=== PATIENT | female | born 1950 | race Caucasian/White ===

== ENCOUNTER 2020-01-24 05:36 | Day surgery (SDC) | payer MEDICARE, OTHER ==
[2020-01-20 12:02] LABS: BASOPHILS % (AUTO) 1.2 % (0-1); EOSINOPHILS # (AUTO) 0.1 X10'3 (0-0.9); EOSINOPHILS % (AUTO) 3.1 % (0-6); LYMPHOCYTES # (AUTO) 0.9 X10'3 (1.1-4.8); LYMPHOCYTES % (AUTO) 23.1 % (21-51); MEAN CORPUSCULAR HEMOGLOBIN 29.1 PG (27.0-31.0); MEAN CORPUSCULAR HGB CONC 33.5 g/dL (33.0-36.5); MEAN CORPUSCULAR VOLUME 86.8 FL (78-98); MEAN PLATELET VOLUME 8.6 FL (7.4-10.4); MONOCYTES # (AUTO) 0.2 X10'3 (0-0.9); MONOCYTES % (AUTO) 6.7 % (2-12); NEUTROPHILS # (AUTO) 2.4 X10'3 (1.8-7.7); NEUTROPHILS % (AUTO) 65.9 % (42-75); PRE OP HEMATOCRIT 45.1 % (35.0-45.0); PRE OP HEMOGLOBIN 15.1 g/dL (12.0-16.0); PRE OP PLATELET COUNT 122 X10'3 (140-440)
[2020-01-20 12:14] LABS: PRE OP PROTIME 9.9 SECONDS (9.0-12.0)
[2020-01-20 12:15] LABS: ALBUMIN 3.9 G/DL (3.4-5.0); ALBUMIN/GLOBULIN RATIO 0.9 (1.1-1.5); ALKALINE PHOSPHATASE 252 IU/L (46-116); BLOOD UREA NITROGEN 20 MG/DL (7-18); BUN/CREATININE RATIO 22.2 (6.6-38.0); CALCIUM 9.4 MG/DL (8.5-10.1); CHLORIDE 101 MMOL/L (99-107); PRE OP ALT 75 U/L (30-65); PRE OP ANION GAP 8 (8-16); PRE OP AST 43 U/L (10-37); PRE OP BILIRUB, TOTAL 0.5 MG/DL (0.0-1.0); PRE OP POTASSIUM 4.2 MMOL/L (3.4-5.1); PRE OP SODIUM 136 MMOL/L (135-145); TOTAL CARBON DIOXIDE 27.4 MMOL/L (24-32); TOTAL PROTEIN 8.2 G/DL (6.4-8.2); eGFR 62 ML/MIN
[2020-01-20 12:22] LABS: PRE OP GLUCOSE 301 MG/DL (70-104)
[~2020-01-24] VITALS: Ht 167.6 cm; Wt 99.5 kg
[~2020-01-24 05:36] MED LIST: ACET-2119 PO; ASCO250T22 PO; ASPI-1265 PO; CLINDAMYCIN/D5W 900mg/50ml 50 ML IV ONE; DICY10CA88 PO; DILT240C96 PO; DULA1.5P SUBCUT; ERGO50CA PO; FOLI0.4T14 PO; FURO-150 PO; INSU100V36 SQ; INSU300I SUBCUT; MULT-620 PO; NAPR-1154 PO; NITR0.4T51 SL; POTA20TA19 PO; PREG100C PO; PREG50CA PO; TELM80TA9 PO; TRAM50TA2 PO; TRAZ-251 PO; VITA-67 PO; VITA1TAB37 PO; famotidine 20mg tablet PO ONE; ringers solution, lacted 1,000 ML IV SCH
[2020-01-24] MEDS ORDERED: LIDOcaine 1% (10mg/ml) 2ml vial ONE (05:50)
[2020-01-24 06:47] VITALS: BP 162/76
[2020-01-24 06:51] VITALS: BP 162/76
[2020-01-24] MEDS ORDERED: BUPIVAcaine/PF 2.5mg/ml (0.25%) 10ml vial ONE (06:54)
--- NOTE | 2020-01-24 06:58 | NUR ---
LITTLE OPEN SCABES, OVER BOTH ARMS AND HANDS. PT SAID DR Banegas IS AWARE, AND LOOKED AT THEM IN THE OFFICE. DR Jackson NOTIFIED OF BG [id number]
[2020-01-24] MEDS ORDERED: LIDOcaine 0.5% (5mg/ml) 50ml vial ONE (07:49)
[2020-01-24] MEDS ORDERED: fentaNYL/PF 50MCG/1 ML 2ML syringe ONE (08:39)
[2020-01-24] MEDS ORDERED: midazolam 2 mg/2 ml injection ONE (08:40)
[2020-01-24 09:02] VITALS: BP 141/72
[2020-01-24] MEDS ORDERED: ringers solution, lacted 1,000 ML IV SCH (09:04)
[2020-01-24] MEDS ORDERED: morphine 4 MG/ML inj SYRINge IV PRN (09:05)
[2020-01-24] MEDS ORDERED: morphine 2 MG/ML inj. syringe IV PRN (09:05)
[2020-01-24] MEDS ORDERED: proCHLORperazine 10 MG/2 ml inj IV PRN (09:05)
[2020-01-24] MEDS ORDERED: meperidine/PF 25mg/ml syringe IV PRN ×3 (09:05)
[2020-01-24] MEDS ORDERED: ondansetron/PF 4mg/2ml inj IV PRN (09:05)
--- NOTE | 2020-01-24 09:07 | NUR ---
Received from OR via [facility], accompanied by Anesthesiologist DR FISHER and report given by Anesthesiolgist. PATIENT responsive to questions, DENIES PAIN, V/S WNL, NEUROVASCULAR CHECKS INTACT, 20G PIV L forearm, LR IVF at 100cc/hr, SCD ON, DRESSING TO RIGHT WRIST CDI ELEVATED WITH ICEBAG APPLIED.
[2020-01-24 09:10] VITALS: BP 136/74
[2020-01-24 09:20] VITALS: BP 143/71
[2020-01-24 09:30] VITALS: BP 158/77
--- NOTE | 2020-01-24 09:52 | NUR ---
Pt discharged to vehicle by wheelchair without incident after pt and family on phone verbalized understanding of all DC instructions and IV taken out. Fingers remain slightly numb but able to move, dressing remains CDI. All belongings returned to patient. Pain meds at home.
== END 2020-01-24 09:52 | disposition home or self-care (01) ==
LOC: PAS 05:36
PROVIDERS: ATTEND Orthopaedic Surgery Hand Surgery
DX: G56.01 Carpal tunnel syndrome, right upper limb (principal); M65.341 Trigger finger, right ring finger; I10 Essential (primary) hypertension; I25.10 Atherosclerotic heart disease of native coronary artery without angina pectoris; E11.9 Type 2 diabetes mellitus without complications; F32.9 Major depressive disorder, single episode, unspecified; F41.9 Anxiety disorder, unspecified; D64.9 Anemia, unspecified; M19.90 Unspecified osteoarthritis, unspecified site; E66.9 Obesity, unspecified; Z68.35 Body mass index [BMI] 35.0-35.9, adult; Z90.710 Acquired absence of both cervix and uterus; Z79.899 Other long term (current) drug therapy; Z79.01 Long term (current) use of anticoagulants; Z20.828 Contact with and (suspected) exposure to other viral communicable diseases; Z98.890 Other specified postprocedural states; Z88.8 Allergy status to other drugs, medicaments and biological substances; Z88.0 Allergy status to penicillin; Z91.030 Bee allergy status; Z88.1 Allergy status to other antibiotic agents; Z79.4 Long term (current) use of insulin; Z95.5 Presence of coronary angioplasty implant and graft
CPT/HCPCS: 26055; 36415; 64721; 71046; 80053; 82948; 85025; 85610; 85730; 87635; J2001; J2250; J3010; J3490; A4215; J7120

== ENCOUNTER 2020-07-17 10:04 | Outpatient (CLI) | payer MEDICARE, OTHER ==
[~2020-07-17 10:04] MED LIST changes: -CLINDAMYCIN/D5W 900mg/50ml 50 ML IV ONE; -famotidine 20mg tablet PO ONE; -ringers solution, lacted 1,000 ML IV SCH
== END 2020-07-17 23:59 | disposition home or self-care (01) ==
LOC: 64 CT 10:04
PROVIDERS: ATTEND Dietitian, Registered
DX: C22.0 Liver cell carcinoma (principal); R91.1 Solitary pulmonary nodule; K76.0 Fatty (change of) liver, not elsewhere classified; R16.2 Hepatomegaly with splenomegaly, not elsewhere classified; I77.810 Thoracic aortic ectasia
CPT/HCPCS: 71250

== ENCOUNTER 2020-08-15 22:16 | Inpatient (IN) | payer MEDICARE, OTHER ==
[~2020-08-15] VITALS: Ht 165.1 cm; Wt 99.5 kg
[2020-08-15 22:57] LABS: BASOPHILS % (AUTO) 0.3 % (0-1); EOSINOPHILS # (AUTO) 0.1 X10'3 (0-0.9); EOSINOPHILS % (AUTO) 0.8 % (0-6); HEMATOCRIT 41.5 % (35.0-45.0); HEMOGLOBIN 13.9 g/dl (12.0-16.0); LYMPHOCYTES # (AUTO) 0.5 X10'3 (1.1-4.8); LYMPHOCYTES % (AUTO) 6.7 % (21-51); MEAN CORPUSCULAR HGB CONC 33.5 g/dL (33.0-36.5); MEAN CORPUSCULAR VOLUME 86.5 FL (78-98); MEAN PLATELET VOLUME 8.6 FL (7.4-10.4); MONOCYTES # (AUTO) 0.7 X10'3 (0-0.9); MONOCYTES % (AUTO) 9.9 % (2-12); NEUTROPHILS # (AUTO) 5.7 X10'3 (1.8-7.7); NEUTROPHILS % (AUTO) 82.3 % (42-75); PLATELET COUNT 105 X10'3 (140-440); RED CELL DISTRIBUTION WIDTH 13.8 % (11.5-14.5)
[2020-08-15 23:06] LABS: ALANINE AMINOTRANSFERASE 607 U/L (12-78); ALBUMIN 3.6 G/DL (3.4-5.0); ALBUMIN/GLOBULIN RATIO 0.9 (1.1-1.5); ALKALINE PHOSPHATASE 266 IU/L (46-116); ANION GAP 9 (8-16); ASPARTATE AMINO TRANSFERASE 565 U/L (10-37); BILIRUBIN,TOTAL 1.2 MG/DL (0.1-1.0); BLOOD UREA NITROGEN 16 MG/DL (7-18); BUN/CREATININE RATIO 15.4 (6.6-38.0); CALCIUM 8.9 MG/DL (8.5-10.1); CHLORIDE 98 MMOL/L (99-107); CREATININE 1.04 MG/DL (0.40-0.90); GLUCOSE 283 MG/DL (70-104); POTASSIUM 4.4 MMOL/L (3.5-5.1); SODIUM 132 MMOL/L (135-145); TOTAL CARBON DIOXIDE 25.5 MMOL/L (24-32); TOTAL PROTEIN 7.5 G/DL (6.4-8.2); eGFR 52 ML/MIN
[2020-08-15] MEDS ORDERED: iohexol 300mg/ml 100ml inj. ONE (23:13)
[2020-08-15 23:54] LABS: CLARITY,URINE CLEAR (Clear); COLOR,URINE YELLOW (Yellow); GLUCOSE, URINE 500 mg/dl (Neg); KETONES,URINE TRACE mg/dl (Neg); LEUKOCYTE ESTERASE ,URINE NEGATIVE (Neg); NITRITES, URINE NEGATIVE (Neg); OCCULT BLOOD,URINE TRACE-INTACT (Neg); PH,URINE 5.5 (4.8-8.0); PROTEIN,URINE 30 mg/dl (Neg); UA COLLECTION TYPE CLN CATCH MIDSTREAM; UROBILINOGEN,URINE 0.2 E.U/dL (0.2-1.0)
[2020-08-16 00:06] LABS: RBC,URINE 0-2 /HPF (0-2); WBC,URINE 0-4 /HPF (0-4)
[2020-08-16 00:10] LABS: BACTERIA,URINE FEW /HPF (Neg); SQUAMOUS EPITHELIAL CELL,UR MANY /LPF (FEW)
[2020-08-16] MEDS ORDERED: fentaNYL/PF 50MCG/1 ML 2ML syringe IV ONE ×2 (00:10→02:05)
[2020-08-16] MEDS ORDERED: normal saline 1000ML IV soln IVB ONE (00:10)
[2020-08-16] MEDS ORDERED: ondansetron/PF 4mg/2ml inj IV ONE ×2 (00:10→00:20)
[2020-08-16] MEDS ORDERED: ketamine 50 mg/ml 10ml vial IV ONE (03:45)
[2020-08-16] MEDS ORDERED: NORMAL SALINE IV ONE (03:55)
[2020-08-16] MEDS ORDERED: KETAMINE IV ONE (03:55)
--- NOTE | 2020-08-16 05:08 | NUR ---
Daughter is Shelly Tsang [phone]. After administration of Ketamine, Pt states her pain is gone. Pt is now resting comfortably.
[2020-08-16] MEDS ORDERED: HYDROmorphone 1 mg/ml syringe IV ONE ×3 (05:55→09:55)
--- NOTE | 2020-08-16 06:30 | NUR ---
PT CURRENTLY WITH MODERATE PAIN CONTROL AND ASSISTED WITH REPOSITIONING FOR COMFORT.
[2020-08-16 09:17] VITALS: BP 159/68
[2020-08-16] MEDS ORDERED: ciprofloxacin 250mg tablet PO ONE (10:15)
[2020-08-16] MEDS ORDERED: metroNIDAZOLE 500mg tablet PO ONE (10:15)
== END 2020-08-16 11:44 | disposition short-term general hospital (02) | DRG 920 ==
LOC: ER 22:17 → ED HOLD 08-16 03:36 → ICU 2S 08-16 08:53
PROVIDERS: ADMIT Internal Medicine; ATTEND Internal Medicine
PROC: BW211ZZ Computerized Tomography (CT Scan) of Abdomen and Pelvis using Low Osmolar Contrast (ICD-10-PCS; principal; 2020-08-15)
DX: K91.840 Postprocedural hemorrhage of a digestive system organ or structure following a digestive system procedure (principal); C22.0 Liver cell carcinoma; G89.18 Other acute postprocedural pain; E11.9 Type 2 diabetes mellitus without complications; Z20.822 Contact with and (suspected) exposure to COVID-19; I10 Essential (primary) hypertension; Y83.8 Other surgical procedures as the cause of abnormal reaction of the patient, or of later complication, without mention of misadventure at the time of the procedure; R74.01 Elevation of levels of liver transaminase levels; I25.10 Atherosclerotic heart disease of native coronary artery without angina pectoris; Z82.49 Family history of ischemic heart disease and other diseases of the circulatory system; Z90.710 Acquired absence of both cervix and uterus; Z88.0 Allergy status to penicillin; Z88.8 Allergy status to other drugs, medicaments and biological substances; Z79.899 Other long term (current) drug therapy; Y92.89 Other specified places as the place of occurrence of the external cause; R10.11 Right upper quadrant pain
CPT/HCPCS: 36415; 71045; 74177; 80053; 81001; 83605; 84145; 85025; 87040; 87635; 93005; 96374; 99291; C9803; G0378; J1170; J2405; J3010; J3490; J7030; Q9967

== ENCOUNTER 2021-06-14 09:44 | Outpatient (CLI) | payer MEDICARE, OTHER ==
[~2021-06-14 09:44] MED LIST changes: +POTA-207 PO; -POTA20TA19 PO
[2021-06-14 10:55] LABS: ALANINE AMINOTRANSFERASE 62 U/L (12-78); ALBUMIN 3.4 G/DL (3.4-5.0); ALBUMIN/GLOBULIN RATIO 0.8 (1.1-1.5); ANION GAP 8 (8-16); ASPARTATE AMINO TRANSFERASE 39 U/L (10-37); BILIRUBIN,TOTAL 0.4 MG/DL (0.1-1.0); BLOOD UREA NITROGEN 17 MG/DL (7-18); BUN/CREATININE RATIO 20.5 (6.6-38.0); CHLORIDE 99 MMOL/L (99-107); CREATININE 0.83 MG/DL (0.40-0.90); GLUCOSE 208 MG/DL (70-104); POTASSIUM 4.4 MMOL/L (3.5-5.1); SODIUM 135 MMOL/L (135-145); TOTAL CARBON DIOXIDE 27.9 MMOL/L (24-32); TOTAL PROTEIN 7.9 G/DL (6.4-8.2); eGFR 68 ML/MIN
[2021-06-14 11:15] LABS: ALKALINE PHOSPHATASE 375 IU/L (46-116)
== END 2021-06-14 23:59 | disposition home or self-care (01) ==
LOC: LAB 09:44
PROVIDERS: ATTEND Physician Assistant Surgical
DX: Z01.818 Encounter for other preprocedural examination (principal); C22.0 Liver cell carcinoma; Z76.82 Awaiting organ transplant status
CPT/HCPCS: 36415; 80053

== ENCOUNTER 2021-06-17 08:31 | Outpatient (CLI) | payer MEDICARE, OTHER ==
[2021-06-17] MEDS ORDERED: iohexol 300mg/ml 100ml inj. ONE (09:04)
== END 2021-06-17 23:59 | disposition home or self-care (01) ==
LOC: RAD 08:31
PROVIDERS: ATTEND Internal Medicine
DX: C22.0 Liver cell carcinoma (principal); K80.20 Calculus of gallbladder without cholecystitis without obstruction; K22.89 Other specified disease of esophagus; M47.816 Spondylosis without myelopathy or radiculopathy, lumbar region; I70.0 Atherosclerosis of aorta; R16.1 Splenomegaly, not elsewhere classified; R91.1 Solitary pulmonary nodule
CPT/HCPCS: 74170; Q9967

== ENCOUNTER 2021-08-16 13:29 | Emergency (ER) | payer MEDICARE, OTHER ==
[~2021-08-16] VITALS: Ht 165.1 cm; Wt 100.0 kg
[2021-08-16 13:42] VITALS: BP 163/75
== END 2021-08-16 15:03 | disposition home or self-care (01) ==
LOC: ER 13:30
DX: M79.604 Pain in right leg (principal); I11.9 Hypertensive heart disease without heart failure; D64.9 Anemia, unspecified; E11.9 Type 2 diabetes mellitus without complications; Z88.0 Allergy status to penicillin; Z88.1 Allergy status to other antibiotic agents; Z79.899 Other long term (current) drug therapy; X58.XXXA Exposure to other specified factors, initial encounter; Y93.89 Activity, other specified; Y92.89 Other specified places as the place of occurrence of the external cause; Y99.8 Other external cause status
CPT/HCPCS: 93971; 99284

== ENCOUNTER 2022-01-30 15:12 | Emergency (ER) | payer MEDICARE, OTHER ==
[~2022-01-30] VITALS: Ht 165.1 cm; Wt 93.2 kg
[2022-01-30 19:13] LABS: BASOPHILS % (AUTO) 0.5 % (0-1); EOSINOPHILS # (AUTO) 0.1 X10'3 (0-0.9); HEMATOCRIT 42.5 % (35.0-45.0); HEMOGLOBIN 13.9 g/dl (12.0-16.0); LYMPHOCYTES # (AUTO) 0.3 X10'3 (1.1-4.8); MEAN CORPUSCULAR HEMOGLOBIN 27.7 PG (27.0-31.0); MEAN CORPUSCULAR HGB CONC 32.6 g/dL (33.0-36.5); MEAN CORPUSCULAR VOLUME 84.9 FL (78-98); MEAN PLATELET VOLUME 8.1 FL (7.4-10.4); MONOCYTES # (AUTO) 0.3 X10'3 (0-0.9); MONOCYTES % (AUTO) 5.8 % (2-12); NEUTROPHILS # (AUTO) 4.5 X10'3 (1.8-7.7); NEUTROPHILS % (AUTO) 86.7 % (42-75); PLATELET COUNT 74 X10'3 (140-440); RED BLOOD COUNT 5.01 X10'6 (4.20-5.60); RED CELL DISTRIBUTION WIDTH 16.5 % (11.5-14.5); WHITE BLOOD COUNT 5.2 X10'3 (4.5-11.0)
[2022-01-30 19:25] LABS: ALANINE AMINOTRANSFERASE 105 U/L (12-78); ALBUMIN 2.9 G/DL (3.4-5.0); ALBUMIN/GLOBULIN RATIO 0.6 (1.1-1.5); ALKALINE PHOSPHATASE 620 IU/L (46-116); ANION GAP 3 (8-16); ASPARTATE AMINO TRANSFERASE 103 U/L (10-37); BILIRUBIN,TOTAL 0.8 MG/DL (0.1-1.0); BLOOD UREA NITROGEN 18 MG/DL (7-18); BUN/CREATININE RATIO 16.2 (6.6-38.0); CALCIUM 9.4 MG/DL (8.5-10.1); CHLORIDE 101 MMOL/L (99-107); CREATININE 1.11 MG/DL (0.40-0.90); GLUCOSE 325 MG/DL (70-104); SODIUM 134 MMOL/L (135-145); TOTAL CARBON DIOXIDE 30.1 MMOL/L (24-32); TOTAL PROTEIN 7.7 G/DL (6.4-8.2); eGFR 48 ML/MIN
[2022-01-30 21:07] LABS: CLARITY,URINE CLEAR (Clear); GLUCOSE, URINE >=1000 mg/dl (Neg); KETONES,URINE NEGATIVE (Neg); LEUKOCYTE ESTERASE ,URINE NEGATIVE (Neg); NITRITES, URINE NEGATIVE (Neg); OCCULT BLOOD,URINE SMALL (Neg); PH,URINE 5.5 (4.8-8.0); PROTEIN,URINE >=300 mg/dl (Neg); UROBILINOGEN,URINE 0.2 E.U/dL (0.2-1.0)
[2022-01-30 21:21] LABS: COLOR,URINE AMBER (Yellow); UA COLLECTION TYPE CLN CATCH MIDSTREAM
[2022-01-30 21:27] LABS: FINE GRANULAR CAST 0-3 /LPF (NEGATIVE)
[2022-01-30 21:29] LABS: WBC,URINE 0-4 /HPF (0-4)
[2022-01-30 21:30] LABS: BACTERIA,URINE FEW /HPF (Neg); SQUAMOUS EPITHELIAL CELL,UR FEW /LPF (FEW)
[2022-01-30 21:31] LABS: MUCUS STRANDS MANY /LPF (Neg); TRANSITIONAL EPI CELLS,URINE FEW /HPF
[2022-01-30 21:44] VITALS: BP 156/82
== END 2022-01-30 21:49 | disposition home or self-care (01) ==
LOC: ER 15:14
DX: R53.1 Weakness (principal); I25.10 Atherosclerotic heart disease of native coronary artery without angina pectoris; I10 Essential (primary) hypertension; E11.9 Type 2 diabetes mellitus without complications; Z87.01 Personal history of pneumonia (recurrent); Z86.2 Personal history of diseases of the blood and blood-forming organs and certain disorders involving the immune mechanism; Z85.05 Personal history of malignant neoplasm of liver; Z90.710 Acquired absence of both cervix and uterus; Z98.890 Other specified postprocedural states; Z88.0 Allergy status to penicillin; Z88.1 Allergy status to other antibiotic agents; Z79.82 Long term (current) use of aspirin; Z79.4 Long term (current) use of insulin; Z79.899 Other long term (current) drug therapy
CPT/HCPCS: 36415; 71045; 80053; 81001; 82140; 85025; 99285

== ENCOUNTER 2022-07-29 21:25 | Emergency (ER) | payer MEDICARE, OTHER ==
[~2022-07-29] VITALS: Ht 165.1 cm; Wt 100.0 kg
[~2022-07-29 21:25] MED LIST changes: -ACET-2119 PO; +ACYC-128 PO; +ARIP5TAB17 PO; -ASCO250T22 PO; +ASPI-1071 PO; -ASPI-1265 PO; +CABO40TA PO; +CHOL200012 PO; +DIPH-522 PO; -DULA1.5P SUBCUT; -ERGO50CA PO; +ESCI20TA39 PO; +FLUC200T93 PO; -FOLI0.4T14 PO; -FURO-150 PO; +INSU100C4 SQ; -INSU100V36 SQ; +INSU200I4 SQ; -INSU300I SUBCUT; +LACT10SO3 PO; +LACT1CAP26 PO; -NAPR-1154 PO; -NITR0.4T51 SL; +NYST30CR34 TP; +ONDA8TAB13 PO; +OXYC1TAB17 PO; -POTA-207 PO; -PREG50CA PO; +PROC10TA10 PO; +RIFA550T PO; +SEMA1PEN3 SQ; -TRAM50TA2 PO; -VITA1TAB37 PO
--- NOTE | 2022-07-29 22:25 | NUR ---
Dr Stephani Giraldo pt oncologist
[2022-07-29 22:37] LABS: BASOPHILS % (AUTO) 0.3 % (0-1); EOSINOPHILS # (AUTO) 0.1 X10'3 (0-0.9); EOSINOPHILS % (AUTO) 3.8 % (0-6); HEMATOCRIT 38.2 % (35.0-45.0); HEMOGLOBIN 12.5 g/dl (12.0-16.0); LYMPHOCYTES # (AUTO) 0.3 X10'3 (1.1-4.8); LYMPHOCYTES % (AUTO) 7.5 % (21-51); MEAN CORPUSCULAR HEMOGLOBIN 27.9 PG (27.0-31.0); MEAN CORPUSCULAR HGB CONC 32.8 g/dL (33.0-36.5); MEAN CORPUSCULAR VOLUME 85.2 FL (78-98); MEAN PLATELET VOLUME 8.3 FL (7.4-10.4); MONOCYTES # (AUTO) 0.2 X10'3 (0-0.9); MONOCYTES % (AUTO) 5.8 % (2-12); NEUTROPHILS # (AUTO) 2.9 X10'3 (1.8-7.7); NEUTROPHILS % (AUTO) 82.6 % (42-75); PLATELET COUNT 83 X10'3 (140-440); RED BLOOD COUNT 4.48 X10'6 (4.20-5.60); RED CELL DISTRIBUTION WIDTH 24.8 % (11.5-14.5); WHITE BLOOD COUNT 3.5 X10'3 (4.5-11.0)
[2022-07-29] MEDS ORDERED: ONDA4TAB12 PO (22:41)
[2022-07-29 22:42] LABS: ALANINE AMINOTRANSFERASE 62 U/L (12-78); ALBUMIN 1.7 G/DL (3.4-5.0); ALBUMIN/GLOBULIN RATIO 0.4 (1.1-1.5); ALKALINE PHOSPHATASE 593 IU/L (46-116); ANION GAP 4 (8-16); ASPARTATE AMINO TRANSFERASE 111 U/L (10-37); BILIRUBIN,TOTAL 0.7 MG/DL (0.1-1.0); BLOOD UREA NITROGEN 26 MG/DL (7-18); BUN/CREATININE RATIO 24.1 (10.0-20.0); CALCIUM 7.9 MG/DL (8.5-10.1); CHLORIDE 107 MMOL/L (99-107); CREATININE 1.08 MG/DL (0.40-0.90); GLUCOSE 150 MG/DL (70-104); POTASSIUM 3.7 MMOL/L (3.5-5.1); SODIUM 138 MMOL/L (135-145); TOTAL CARBON DIOXIDE 27.2 MMOL/L (24-32); TOTAL PROTEIN 5.9 G/DL (6.4-8.2); eGFR 50 ML/MIN
[2022-07-29 22:59] LABS: ANISOCYTOSIS 2+; MICROCYTOSIS FEW; PLATELET ESTIMATE DECREASED
[2022-07-29 23:00] LABS: SPHEROCYTES 1+
[2022-07-30 00:33] VITALS: BP 136/69
== END 2022-07-30 00:34 | disposition home or self-care (01) ==
LOC: ER 21:25
DX: R15.9 Full incontinence of feces (principal); C7B.09 Secondary carcinoid tumors of other sites; I11.9 Hypertensive heart disease without heart failure; D64.9 Anemia, unspecified; E11.9 Type 2 diabetes mellitus without complications; Z90.49 Acquired absence of other specified parts of digestive tract; Z88.0 Allergy status to penicillin; Z88.1 Allergy status to other antibiotic agents; Z79.899 Other long term (current) drug therapy; Z79.1 Long term (current) use of non-steroidal anti-inflammatories (NSAID); Z79.2 Long term (current) use of antibiotics
CPT/HCPCS: 36415; 80053; 82140; 85008; 85025; 99284; J7030

== ENCOUNTER 2022-10-24 19:26 | Emergency (ER) | payer MEDICARE, OTHER ==
[~2022-10-24] VITALS: Ht 165.1 cm; Wt 97.7 kg
[~2022-10-24 19:26] MED LIST changes: +ACET-1008 PO; +ALBU18HF2 INH; +ARIP10TA57 PO; -ARIP5TAB17 PO; -ASPI-1071 PO; -CHOL200012 PO; +FURO40TA4 PO; -LACT1CAP26 PO; +LEVO50TA PO; -MULT-620 PO; -NYST30CR34 TP; +POTA-366 PO; -VITA-67 PO
[2022-10-24 20:06] LABS: BASOPHILS % (AUTO) 0.4 % (0-1); EOSINOPHILS % (AUTO) 1.8 % (0-6); HEMATOCRIT 36.1 % (35.0-45.0); HEMOGLOBIN 11.8 g/dl (12.0-16.0); LYMPHOCYTES # (AUTO) 0.2 X10'3 (1.1-4.8); LYMPHOCYTES % (AUTO) 5.9 % (21-51); MEAN CORPUSCULAR HEMOGLOBIN 31.6 PG (27.0-31.0); MEAN CORPUSCULAR HGB CONC 32.8 g/dL (33.0-36.5); MEAN CORPUSCULAR VOLUME 96.3 FL (78-98); MEAN PLATELET VOLUME 9.2 FL (7.4-10.4); MONOCYTES # (AUTO) 0.2 X10'3 (0-0.9); MONOCYTES % (AUTO) 5.7 % (2-12); NEUTROPHILS # (AUTO) 2.3 X10'3 (1.8-7.7); NEUTROPHILS % (AUTO) 86.2 % (42-75); PLATELET COUNT 80 X10'3 (140-440); RED BLOOD COUNT 3.75 X10'6 (4.20-5.60); RED CELL DISTRIBUTION WIDTH 17.3 % (11.5-14.5); WHITE BLOOD COUNT 2.7 X10'3 (4.5-11.0)
[2022-10-24 20:14] LABS: AMMONIA < 10 UMOL/L (11-32)
[2022-10-24 20:19] LABS: LACTIC SEPSIS 1.5 MMOL/L (0.4-2.0)
[2022-10-24 20:25] LABS: ALANINE AMINOTRANSFERASE 103 U/L (12-78); ALBUMIN 2.5 G/DL (3.4-5.0); ALBUMIN/GLOBULIN RATIO 0.6 (1.1-1.5); ALKALINE PHOSPHATASE 832 IU/L (46-116); ANION GAP 12 (8-16); ASPARTATE AMINO TRANSFERASE 181 U/L (10-37); BILIRUBIN,TOTAL 0.7 MG/DL (0.1-1.0); BLOOD UREA NITROGEN 40 MG/DL (7-18); BUN/CREATININE RATIO 20.4 (10.0-20.0); CHLORIDE 107 MMOL/L (99-107); CREATININE 1.96 MG/DL (0.40-0.90); GLUCOSE 185 MG/DL (70-104); LIPASE 189 U/L (73-393); POTASSIUM 4.8 MMOL/L (3.5-5.1); SODIUM 143 MMOL/L (135-145); TOTAL CARBON DIOXIDE 24.5 MMOL/L (24-32); TOTAL PROTEIN 6.4 G/DL (6.4-8.2); eGFR 25 ML/MIN
[2022-10-24 20:38] LABS: CALCIUM 8.6 MG/DL (8.5-10.1)
[2022-10-24] MEDS ORDERED: LIDOcaine 1% W/epiNEPHrine 1:100,000 20ml vial SQ ONE (21:00)
[2022-10-24 21:44] LABS: PLATELET ESTIMATE DECREASED; TOTAL CELLS COUNTED 100
[2022-10-24 21:45] LABS: ANISOCYTOSIS 1+; LARGE PLATELETS FEW
[2022-10-24] MEDS ORDERED: albumin (human) 25% 100 ML IV solution IV ONE (21:55)
[2022-10-24] MEDS ORDERED: oxyCODONE/APAP 10/325mg tablet PO ONE (22:00)
--- NOTE | 2022-10-24 22:30 | NUR ---
attempted IV multiple times. md aware. patient gave permission to acess port a cath. cath to be accessed using sterile technique
[2022-10-24] MEDS ORDERED: heparin sodium, porcine/PF 100unit/ml 5ML syringe IV STA (22:49)
[2022-10-25 00:15] VITALS: BP 146/72
[2022-10-26] MEDS ORDERED: DICL100G30 TOP (18:56)
[2022-10-27] MEDS ORDERED: NYST15CR36 TOP (13:27)
== END 2022-10-25 00:38 | disposition home or self-care (01) ==
LOC: ER 19:27
DX: R18.8 Other ascites (principal); I10 Essential (primary) hypertension; E11.9 Type 2 diabetes mellitus without complications; Z88.0 Allergy status to penicillin; Z88.1 Allergy status to other antibiotic agents; Z90.710 Acquired absence of both cervix and uterus
CPT/HCPCS: 36415; 49083; 71045; 80053; 82140; 83605; 83690; 83880; 84145; 84484; 85007; 85025; 87040; 93005; 96374; 96375; 99285; J1642; P9047